=== PATIENT | male | born 1965 | race Caucasian/White ===

== ENCOUNTER 2020-08-12 08:25 | Inpatient (IN) | payer OTHER ==
[~2020-08-12] VITALS: Ht 175.2 cm; Wt 1111.4 kg
[2020-08-12 09:11] LABS: HEMATOCRIT 35.7 % (42.0-52.0); MEAN CELL VOLUME 86.4 fl (80.0-94.0); MEAN CORPUSCULAR HGB 28.1 pg (27.0-31.0); MEAN CORPUSCULAR HGB CONC 32.5 g/dl (33.0-37.0); MEAN PLATELET VOLUME 10.3 fl (9.6-12.3); PLATELET COUNT AUTOMATED 90 10*3/uL (130-400); RED BLOOD COUNT 4.13 10*6/uL (4.50-5.90); RED CELL DISTRI WIDTH 13.5 % (0-14.5)
[2020-08-12 09:23] LABS: ACT PARTIAL THROMBO TIME 33.6 SECONDS (20.0-32.1); INTERNATIONAL NORM RATIO 1.1 (2.0-3.5)
[2020-08-12 09:25] LABS: ALBUMIN 3.1 gm/dl (3.1-4.5); ALKALINE PHOSPHATASE 150 U/L (45-117); BUN 5 mg/dl (7-24); CHLORIDE 110 mmol/L (98-107); CREATININE 0.77 mg/dL (0.70-1.30); LIPASE 75 U/L (73-393); POTASSIUM 2.9 mmol/L (3.5-5.1); SGOT/AST 47 IU/L (3-35); SGPT/ALT 29 U/L (12-78); SODIUM 143 mmol/L (136-145); TOTAL PROTEIN 7.1 gm/dL (6.4-8.2); TROPONIN I < 0.015 ng/ml (<0.045)
[2020-08-12 09:32] LABS: OVALOCYTES MODERATE; PLATELET SUFFICIENCY LOW (NORMAL); ROULEAUX MODERATE; TOTAL CELLS COUNTED 100 #CELLS
[2020-08-12] MEDS ORDERED: ASPIRIN ADULT L81 M1 PO (10:41)
[2020-08-12] MEDS ORDERED: GLUCOPHAGE500 M1 PO (10:42)
[2020-08-12] MEDS ORDERED: ATORVASTATIN CA20 M1 PO (10:43)
--- NOTE | 2020-08-12 10:45 | NUR ---
patient alert, comfortable at this time. awaiting lab results.
--- NOTE | 2020-08-12 13:57 | NUR ---
ATTEMPT TO CALL REPORT TO FLOOR. RN UNAVAILABLE AT THIS TIME.
--- NOTE | 2020-08-12 14:41 | NUR ---
DR. PINO NOTIFIED OF CONSULT.
--- NOTE | 2020-08-12 14:46 | NUR ---
DR. CASTELLON'S OFFICE NOTIFIED OF CONSULT.
--- NOTE | 2020-08-12 15:05 | NUR ---
REPORT TO JANN RUVALCABA
[2020-08-12 15:20] VITALS: BP 146/66
[2020-08-12 15:46] LABS: ABG BASE EXCESS 2.1 mmol/L (-2.0-2.0); ARTERIAL BLOOD GAS PH 7.42 (7.35-7.45)
[2020-08-12 16:00] VITALS: BP 146/66
--- NOTE | 2020-08-12 18:29 | NUR ---
1430 ADMITTED TO .# 425 VIA CART FROM ER WITH PNUEMONIA, R/O COID-19. ISOLATION STARTED. ALERT, ORIENTED X3 . COHERENT WITH O2 PER N/C IN PLACE. VITALS STABLE. DENIED DISCOMFORT AT THIS TIME. BILATERAL CRACKLES, MORE PRONOUNCED TO THE LEFT UPPER AND LOWER LOBES. NO DYSPMEA NOTED. RESTING COMFORTABLY. LEFT AC IV .9NS 1L INFUSING WITH NO S/S INFILTATION NOTED.ABDOMEN OBESE WITH ACTIVE B/S X4. DENIES DISCOMFORT. NO SYSTEMIC EDEMA NOTED. POSITIVE STRONG PERPHERIAL PULSES.
[2020-08-12 20:00] VITALS: BP 129/67
[2020-08-13] VITALS (7 sets, daily range): BP systolic 122–157; BP diastolic 50–82
--- NOTE | 2020-08-13 01:10 | NUR ---
PLACED PATIENT ON BIPAP 16/10,50%O2 DUE TO LOW OXYGEN SATURATION 86-88% AND INCREASED WORK OF BREATHING. PATIENT APPEARS MORE COMFORTABLE AND STATED HE CAN BREATHE MUCH BETTER.
[2020-08-13 01:29] LABS: ABG BASE EXCESS 2.8 mmol/L (-2.0-2.0); ARTERIAL BLOOD GAS PH 7.42 (7.35-7.45)
--- NOTE | 2020-08-13 01:38 | NUR ---
0100 Pts. sat's 85%-86% Respiratory called pt was placed on Bi-pap sat's 97% ABG'S drawn by Respiratory Therapist. Temp. 100.0 Tylenol 2 tabs given po @ 0105. Pt. resting comfortably, stated feeling much better. Will continue to monitor.
--- NOTE | 2020-08-13 02:35 | NUR ---
INCREASED O2 VIA BIPAP TO 65% TO MAINTAIN SPO2 <92%. WILL CONTINUE TO MONITOR
--- NOTE | 2020-08-13 03:29 | NUR ---
0327 Pt tranfered to ICU pt needed higher level of care due to respiratory status and fever of 100.0. RT. felt pt. needed higher level of care. Report given to nurse @ 0325. T. 100.0 P.80 R.18 sat's 97%.
--- NOTE | 2020-08-13 03:42 | NUR ---
0330:Pt received from 425-1, pt is AAOx3. Pt is on BiPAP at 65%, saturating 95%. Pt VSS, in no signs of distress. Pt noted with left forearm PIV, site is clean and intact. Skin assessment complete, skin is intact. Call roberson within reach, safety measures in place.
[2020-08-13 06:28] LABS: ALBUMIN 2.9 gm/dl (3.1-4.5); BUN 6 mg/dl (7-24); CHLORIDE 110 mmol/L (98-107); POTASSIUM 3.1 mmol/L (3.5-5.1); SODIUM 143 mmol/L (136-145)
[2020-08-13 06:35] LABS: MONO # 0.2 10*3/uL (0.1-1.0); NEUT # 1.4 10*3/uL (2.3-7.9)
[2020-08-13 06:36] LABS: HEMATOCRIT 35.6 % (42.0-52.0); LYMPH # 0.5 10*3/uL (1.3-4.4); MEAN CELL VOLUME 87.3 fl (80.0-94.0); MEAN CORPUSCULAR HGB 28.2 pg (27.0-31.0); MEAN CORPUSCULAR HGB CONC 32.3 g/dl (33.0-37.0); MEAN PLATELET VOLUME 10.3 fl (9.6-12.3); MONO % 7.4 % (3.0-9.0); NEUT % 66.7 % (47.0-73.0); PLATELET COUNT AUTOMATED 112 10*3/uL (130-400); RED BLOOD COUNT 4.08 10*6/uL (4.50-5.90); RED CELL DISTRI WIDTH 13.4 % (0-14.5); WHITE BLOOD COUNT 2.2 10*3/uL (4.8-10.8)
[2020-08-13 06:37] LABS: ALKALINE PHOSPHATASE 133 U/L (45-117); CHOLESTEROL 86 mg/dL (<200); CREATININE 0.69 mg/dL (0.70-1.30); HDL CHOLESTEROL 27 mg/dl (40-60); LDL CHOLESTEROL 40 mg/dL (9-159); SGOT/AST 45 IU/L (3-35); SGPT/ALT 27 U/L (12-78); TOTAL PROTEIN 6.8 gm/dL (6.4-8.2); TRIGLYCERIDES 93 mg/dl (<150); VLDL CHOLESTEROL 19 mg/dL (6-40)
--- NOTE | 2020-08-13 07:47 | NUR ---
PT TAKEN OFF BIPAP AND PLACED ON 15LHFNC
[2020-08-13 07:50] LABS: ABG BASE EXCESS 3.1 mmol/L (-2.0-2.0); ARTERIAL BLOOD GAS PH 7.43 (7.35-7.45)
--- NOTE | 2020-08-13 08:00 | NUR ---
RESTING IN BED. ENCOURAGED PRONING. PULSE OX 97% ON 15 LITERS HIGH FLOW NASAL CANNULA. LUNGS CLEAR BILATERALLY. NO EDEMA NOTED.
--- NOTE | 2020-08-13 09:30 | NUR ---
DR. PINO HERE TO SEE PATIENT
[2020-08-13 12:50] LABS: ABG BASE EXCESS 3.9 mmol/L (-2.0-2.0); ARTERIAL BLOOD GAS PH 7.49 (7.35-7.45)
[2020-08-13 17:16] LABS: ABG BASE EXCESS 3.5 mmol/L (-2.0-2.0); ARTERIAL BLOOD GAS PH 7.457 (7.35-7.45)
--- NOTE | 2020-08-13 20:14 | NUR ---
ABG'S WERE DRAWN AND SENT. PULSE OX ON BIPAP 96%. TAKEN OFF FOR MEDICATIONS, ICE WATER, MEDS, AND TALKING ON HER CELL PHONE. PLACED ON 15L HIGH FLOW NASAL CANNULA WITH PULSE OX 88-93%.
[2020-08-13 20:21] LABS: ABG BASE EXCESS 2.7 mmol/L (-2.0-2.0); ARTERIAL BLOOD GAS PH 7.486 (7.35-7.45)
--- NOTE | 2020-08-13 20:34 | NUR ---
ABG'S WERE DRAWN AND SENT BY DANYA FROM RESPIRATORY DEPT WHILE PT WAS ON BIPAP. HE NOTIFIED DR PINO OF RESULTS. PT WANTING A BREAK AND TO TALK ON TELEPHONE, SO HE WAS THEN PLACED ON 12L HF NASAL AND O2 SATS WERE LOW TO MID 90'S.
--- NOTE | 2020-08-13 21:03 | NUR ---
CHART CHECK COMPLETE.
--- NOTE | 2020-08-13 21:35 | NUR ---
PT EATING PM SNACK OF CRACKERS PER HIS REQUEST. PLEASANT, ALERT, APPROPRIATE.
--- NOTE | 2020-08-13 22:20 | NUR ---
BACK ON BIPAP.
[2020-08-14] VITALS: BP 136/70
--- NOTE | 2020-08-14 00:12 | NUR ---
PT SELF PRONING.
[2020-08-14 04:00] VITALS: BP 146/77
[2020-08-14 06:21] LABS: HEMATOCRIT 37.3 % (42.0-52.0); MEAN CELL VOLUME 85.7 fl (80.0-94.0); MEAN CORPUSCULAR HGB 27.6 pg (27.0-31.0); MEAN CORPUSCULAR HGB CONC 32.2 g/dl (33.0-37.0); MEAN PLATELET VOLUME 9.9 fl (9.6-12.3); PLATELET COUNT AUTOMATED 144 10*3/uL (130-400); RED BLOOD COUNT 4.35 10*6/uL (4.50-5.90); RED CELL DISTRI WIDTH 12.9 % (0-14.5)
[2020-08-14 06:27] LABS: WHITE BLOOD COUNT 1.4 10*3/uL (4.8-10.8)
[2020-08-14 06:38] LABS: ALBUMIN 2.9 gm/dl (3.1-4.5); ALKALINE PHOSPHATASE 137 U/L (45-117); BUN 9 mg/dl (7-24); CHLORIDE 110 mmol/L (98-107); POTASSIUM 4.1 mmol/L (3.5-5.1); SGOT/AST 39 IU/L (3-35); SGPT/ALT 28 U/L (12-78); SODIUM 142 mmol/L (136-145); TOTAL PROTEIN 7.1 gm/dL (6.4-8.2)
[2020-08-14 07:34] LABS: PLATELET SUFFICIENCY NORMAL (NORMAL); TOTAL CELLS COUNTED 100 #CELLS
[2020-08-14 08:00] VITALS: BP 150/86
--- NOTE | 2020-08-14 08:00 | NUR ---
PT IS AAOX3. VSS. PT REMAINS ON BIPAP. FIO2 55% POX 96%.. LUNG QUACH DIM. PT HAS HAD AN INFREQUENT COUGH. ABD. SOFT WITH ACTIVE BOWEL SOUNDS. NO PERIPHERAL EDEMA NOTED. PT DENIE COMPLAINTS. NO ACUTE DISTRESS NOTED.
[2020-08-14 08:41] LABS: ABG BASE EXCESS 2.2 mmol/L (-2.0-2.0); ARTERIAL BLOOD GAS PH 7.454 (7.35-7.45)
--- NOTE | 2020-08-14 09:00 | NUR ---
[employer] Observer Helper in to talk to patient. Patient states lives at home with friend. There are no steps in the home. Physician: out of state Pharmacy: out of state Home health services: no Patient's level of ADLs: INDEPENDENT Patient has working utilities: all working DME: none Follow-up physician's appointment after d/c: will be made by hospitalist nurse director with doctor of patient's choice Does patient want to access PORTAL?: no Discharge plan he lives at home with friend, is independent in adls and ambulation, works, drives, discharge plan undecided at this time, case management will follow. LUIS ANGEL CHAPARRO
--- NOTE | 2020-08-14 10:30 | NUR ---
DR PINO IN TO SEE PT. NEW ORDERS RECEIVED.
--- NOTE | 2020-08-14 11:00 | NUR ---
RIGHT RADIAL ARTERIAL LINE PLACED BY PHIL SIFUENTES CRNA, AFTER VERBAL CONSENT RECEIVED FROM PT. PT TOLERATED PROCEDURE WELL.
[2020-08-14 12:00] VITALS: BP 143/74
[2020-08-14 16:00] VITALS: BP 165/80
--- NOTE | 2020-08-14 16:09 | NUR ---
PT RESTING. NO ACUTE DISTRESS NOTED.
[2020-08-14 20:00] VITALS: BP 150/71
--- NOTE | 2020-08-14 20:00 | NUR ---
PT RESTING IN BED TALKING ON PHONE, A&OXE, PLEASANT AND COOPERATIVE WITH STAFF. RESP NONLABORED. NO ACUTE DISTRESS NOTED. NO COMPLAINTS VOICED. RIGHT ART LINE AND LEFT HEPLOCK PATENT.
[2020-08-15] VITALS: BP 130/62
[2020-08-15 04:00] VITALS: BP 131/59
--- NOTE | 2020-08-15 04:55 | NUR ---
DR LING NOTIFIED OF HR GOING INTO 30'S. STATES WILL PASS ON TO DAYLIGHT SHIFT.
[2020-08-15 06:16] LABS: HEMATOCRIT 36.5 % (42.0-52.0); LYMPH # 0.5 10*3/uL (1.3-4.4); MEAN CELL VOLUME 85.3 fl (80.0-94.0); MEAN CORPUSCULAR HGB 28.3 pg (27.0-31.0); MEAN CORPUSCULAR HGB CONC 33.2 g/dl (33.0-37.0); MEAN PLATELET VOLUME 10.6 fl (9.6-12.3); MONO # 0.2 10*3/uL (0.1-1.0); NEUT # 2.6 10*3/uL (2.3-7.9); NEUT % 78.7 % (47.0-73.0); PLATELET COUNT AUTOMATED 165 10*3/uL (130-400); RED BLOOD COUNT 4.28 10*6/uL (4.50-5.90); RED CELL DISTRI WIDTH 13.2 % (0-14.5); WHITE BLOOD COUNT 3.3 10*3/uL (4.8-10.8)
[2020-08-15 06:42] LABS: BUN 17 mg/dl (7-24); CHLORIDE 110 mmol/L (98-107); CREATININE 0.69 mg/dL (0.70-1.30); SGOT/AST 32 IU/L (3-35); SGPT/ALT 28 U/L (12-78); SODIUM 139 mmol/L (136-145)
[2020-08-15 06:45] LABS: ALKALINE PHOSPHATASE 127 U/L (45-117); LDH 313 U/L (87-241)
[2020-08-15 07:29] LABS: ARTERIAL BLOOD GAS PH 7.441 (7.35-7.45)
[2020-08-15 08:00] VITALS: BP 129/60
--- NOTE | 2020-08-15 10:00 | NUR ---
PLACED UP INTO CHAIR WITH HELP. TOLERATED FAIR. ART LINE INTACT TO RIGHT RADIAL. SINUS CONCETTA ON HEART MONITOR. HEART RATE 40-50'S
[2020-08-15 12:00] VITALS: BP 141/60
[2020-08-15 16:00] VITALS: BP 138/57
[2020-08-15 20:00] VITALS: BP 122/53
[2020-08-16] VITALS: BP 129/62
[2020-08-16 04:00] VITALS: BP 126/50
[2020-08-16 06:05] LABS: LYMPH # 0.6 10*3/uL (1.3-4.4); LYMPH % 14.5 % (27.0-41.0); MEAN CELL VOLUME 84.7 fl (80.0-94.0); MEAN CORPUSCULAR HGB CONC 33.1 g/dl (33.0-37.0); MEAN PLATELET VOLUME 10.6 fl (9.6-12.3); MONO # 0.2 10*3/uL (0.1-1.0); MONO % 6.2 % (3.0-9.0); NEUT % 78.5 % (47.0-73.0); PLATELET COUNT AUTOMATED 180 10*3/uL (130-400); RED BLOOD COUNT 4.25 10*6/uL (4.50-5.90); RED CELL DISTRI WIDTH 13.1 % (0-14.5); WHITE BLOOD COUNT 3.9 10*3/uL (4.8-10.8)
[2020-08-16 06:25] LABS: ALBUMIN 2.9 gm/dl (3.1-4.5); BUN 18 mg/dl (7-24); CHLORIDE 108 mmol/L (98-107); CREATININE 0.63 mg/dL (0.70-1.30); POTASSIUM 3.6 mmol/L (3.5-5.1); SGOT/AST 40 IU/L (3-35); SODIUM 140 mmol/L (136-145); TOTAL PROTEIN 6.3 gm/dL (6.4-8.2)
[2020-08-16 06:26] LABS: CPK 61 U/L (39-308); SGPT/ALT 58 U/L (12-78)
[2020-08-16 06:27] LABS: ALKALINE PHOSPHATASE 114 U/L (45-117); LDH 234 U/L (87-241)
[2020-08-16 08:00] VITALS: BP 117/53
[2020-08-16 08:28] LABS: ABG BASE EXCESS 0.4 mmol/L (-2.0-2.0); ARTERIAL BLOOD GAS PH 7.466 (7.35-7.45)
--- NOTE | 2020-08-16 08:30 | NUR ---
AM ABG DRAWN WHILE PT ON BIPAP. POST ABG, PT TAKEN OFF BIPAP PLACED ON 8 L HFNC. RESPS REGULAR AND UNLABORED.
--- NOTE | 2020-08-16 10:28 | NUR ---
CONDITION DISCUSSED WITH DR PINO. ORDERS RECEIVED.
--- NOTE | 2020-08-16 12:00 | NUR ---
DR PINO VISITS.
[2020-08-16 12:12] LABS: ABG BASE EXCESS 2.5 mmol/L (-2.0-2.0); ARTERIAL BLOOD GAS PH 7.482 (7.35-7.45)
--- NOTE | 2020-08-16 12:21 | NUR ---
FIO2 ON BIPAPDECREASED TO 40% PER DR PINO. ABG DRAWN ON 8 L HFNC.
[2020-08-16 12:29] VITALS: BP 163/73
--- NOTE | 2020-08-16 12:31 | NUR ---
PT OFFERED TO ASSIST WITH BATH BUT HE DECLINES AT THIS TIME.
--- NOTE | 2020-08-16 13:37 | NUR ---
ART LINE WAS REMOVED. PRESSURE APPLIED FOR 15 MINUTES AND DRESSING SECURE. SHIFT DIRECTOR NOTIFIED OF TELE STATUS.
--- NOTE | 2020-08-16 15:10 | NUR ---
PT BACK ON BIPAP AND SELF PRONING.
[2020-08-16 16:00] VITALS: BP 125/62
[2020-08-16 20:00] VITALS: BP 144/73
--- NOTE | 2020-08-16 22:00 | NUR ---
PT TRANSFERRED TO FLOOR. REPORT RECEIVED. PT LYING INBED WATCHING TV. NO COMPLAINTS
[2020-08-17] VITALS: BP 128/52
--- NOTE | 2020-08-17 02:00 | NUR ---
PT ASLEEP AT THIS TIME. BIPAP IN PLACE.
--- NOTE | 2020-08-17 02:35 | NUR ---
24 HR chart check completed.
[2020-08-17 06:28] LABS: HEMATOCRIT 37.5 % (42.0-52.0); LYMPH # 0.6 10*3/uL (1.3-4.4); LYMPH % 13.3 % (27.0-41.0); MEAN CELL VOLUME 85.2 fl (80.0-94.0); MEAN CORPUSCULAR HGB 28.2 pg (27.0-31.0); MEAN CORPUSCULAR HGB CONC 33.1 g/dl (33.0-37.0); MEAN PLATELET VOLUME 10.2 fl (9.6-12.3); MONO # 0.2 10*3/uL (0.1-1.0); MONO % 5.3 % (3.0-9.0); NEUT # 3.6 10*3/uL (2.3-7.9); NEUT % 80.5 % (47.0-73.0); PLATELET COUNT AUTOMATED 174 10*3/uL (130-400); RED CELL DISTRI WIDTH 13.1 % (0-14.5); WHITE BLOOD COUNT 4.5 10*3/uL (4.8-10.8)
[2020-08-17 07:03] LABS: ALKALINE PHOSPHATASE 142 U/L (45-117); BUN 19 mg/dl (7-24); CHLORIDE 109 mmol/L (98-107); CREATININE 0.71 mg/dL (0.70-1.30); LDH 238 U/L (87-241); SGOT/AST 146 IU/L (3-35); SGPT/ALT 321 U/L (12-78); SODIUM 141 mmol/L (136-145); TOTAL PROTEIN 6.7 gm/dL (6.4-8.2)
[2020-08-17 07:04] LABS: CPK 44 U/L (39-308)
[2020-08-17 08:00] VITALS: BP 142/65
[2020-08-17 12:00] VITALS: BP 129/69
[2020-08-17 20:00] VITALS: BP 146/66
[2020-08-18] VITALS: BP 109/58
[2020-08-18 06:14] LABS: LYMPH # 0.7 10*3/uL (1.3-4.4); LYMPH % 12.8 % (27.0-41.0); MEAN CELL VOLUME 84.3 fl (80.0-94.0); MEAN CORPUSCULAR HGB CONC 33.2 g/dl (33.0-37.0); MEAN PLATELET VOLUME 10.1 fl (9.6-12.3); MONO # 0.3 10*3/uL (0.1-1.0); MONO % 5.5 % (3.0-9.0); NEUT # 4.4 10*3/uL (2.3-7.9); PLATELET COUNT AUTOMATED 178 10*3/uL (130-400); RED BLOOD COUNT 4.39 10*6/uL (4.50-5.90); WHITE BLOOD COUNT 5.5 10*3/uL (4.8-10.8)
[2020-08-18 06:31] LABS: ALBUMIN 2.9 gm/dl (3.1-4.5); BUN 16 mg/dl (7-24); CHLORIDE 109 mmol/L (98-107); CREATININE 0.67 mg/dL (0.70-1.30); SGOT/AST 56 IU/L (3-35); SODIUM 140 mmol/L (136-145)
[2020-08-18 06:35] LABS: ALKALINE PHOSPHATASE 127 U/L (45-117); CPK 36 U/L (39-308); LDH 184 U/L (87-241); SGPT/ALT 235 U/L (12-78); TOTAL PROTEIN 6.3 gm/dL (6.4-8.2)
[2020-08-18 08:00] VITALS: BP 135/56
[2020-08-18 12:00] VITALS: BP 118/65
[2020-08-18 16:00] VITALS: BP 153/61
[2020-08-18 20:00] VITALS: BP 151/67
--- NOTE | 2020-08-18 21:15 | NUR ---
RESTING IN BED. REPOSITIONS SELF IN BED. NO C/O AT THIS TIME. OXYGEN IN USE. NO SOB NOTED. BSG-183, SEE EMAR. CALL LIGHT IN REACH. SEE SHIFT ASSESSMENT.
[2020-08-19] VITALS: BP 144/78
--- NOTE | 2020-08-19 00:40 | NUR ---
PT RESTING IN BED. RESP-EASY AND REGULAR. BIPAP IN USE. CALL LIGHT IN REACH. SEE SHIFT ASSESSMENT.
--- NOTE | 2020-08-19 04:00 | NUR ---
SLEEPING IN BED. RESP-EASY AND REGULAR. BIPAP IN USE.CALL LIGHT IN REACH.
--- NOTE | 2020-08-19 05:30 | NUR ---
PT RESTING IN BED. RESP-EASY AND REGULAR. OXYGEN IN USE. CALL LIGHT IN REACH.
--- NOTE | 2020-08-19 06:40 | NUR ---
BSG-152, NO COVERAGE GIVEN.
[2020-08-19 07:42] LABS: HEMATOCRIT 36.6 % (42.0-52.0); MEAN CELL VOLUME 83.9 fl (80.0-94.0); MEAN CORPUSCULAR HGB 27.8 pg (27.0-31.0); MEAN CORPUSCULAR HGB CONC 33.1 g/dl (33.0-37.0); MEAN PLATELET VOLUME 10.1 fl (9.6-12.3); PLATELET COUNT AUTOMATED 183 10*3/uL (130-400); RED BLOOD COUNT 4.36 10*6/uL (4.50-5.90); RED CELL DISTRI WIDTH 13.2 % (0-14.5); WHITE BLOOD COUNT 5.2 10*3/uL (4.8-10.8)
[2020-08-19 08:00] VITALS: BP 146/71
[2020-08-19 08:13] LABS: ALBUMIN 2.8 gm/dl (3.1-4.5); ALKALINE PHOSPHATASE 124 U/L (45-117); BUN 22 mg/dl (7-24); CHLORIDE 108 mmol/L (98-107); CREATININE 0.75 mg/dL (0.70-1.30); LDH 181 U/L (87-241); POTASSIUM 3.8 mmol/L (3.5-5.1); SGOT/AST 140 IU/L (3-35); SGPT/ALT 496 U/L (12-78); SODIUM 139 mmol/L (136-145); TOTAL PROTEIN 6.1 gm/dL (6.4-8.2)
--- NOTE | 2020-08-19 08:34 | NUR ---
PT IN BED ON BIPAP, REQUESTED IT TO BE REMOVED. PT AMBULATED TO BATHROOM, WASHED UP AND RETURNED TO BED. PULSE OX 96% ON RA. PT AMBUALTED AROUND ROOM STATING HE "FEELS GREAT" 3L HIGH [place] NC APPLIED. RESP EASY AND NONLABORED. NO C/O, WILL MONITOR.
[2020-08-19 08:43] LABS: ATYPICAL LYMPHS 1 % (0-0); OVALOCYTES MODERATE; PLATELET SUFFICIENCY NORMAL (NORMAL); TOTAL CELLS COUNTED 100 #CELLS
--- NOTE | 2020-08-19 09:00 | NUR ---
case management talks with patient, he will return home when discharged and denies any home needs
[2020-08-19 12:00] VITALS: BP 128/68
--- NOTE | 2020-08-19 12:45 | NUR ---
HOME O2 ASSESSMENT: PRE BP: 139/64, HR 65, RR 18, PULSE OX 94% ON ROOM AIR AT REST. AMBULATED PATIENT IN ROOM, PULSE OX 94%-97% ON ROOM AIR WHILE AMBULATING. NO DISTRESS NOTED. POST BP: 141/65, HR 63, RR 18, PULSE OX 98% ON ROOM AIR AT REST. RN NOTIFIED.
[2020-08-19] MEDS ORDERED: DECADRON6 M1 PO (14:23)
--- NOTE | 2020-08-19 15:35 | NUR ---
Discharge instructions reviewed with patient/family. Patient receptive and verbalizes understanding. Follow-up care arranged. Written instructions given to patient/family. ERIKA MELTON
== END 2020-08-19 15:35 | disposition home or self-care (01) | DRG 177 ==
LOC: ED 08:25 → EDHOLD 12:44 → ICCU 12:44 → 4E 12:44 → ICCU 08-13 03:15 → 4E 08-16 21:00
PROVIDERS: Emergency Medicine; Family Medicine; Internal Medicine; Internal Medicine Critical Care Medicine; Student in an Organized Health Care Education/Training Program; ADMIT Internal Medicine; ATTEND Internal Medicine
PROC: 5A09457 Assistance with Respiratory Ventilation, 24-96 Consecutive Hours, Continuous Positive Airway Pressure (ICD-10-PCS; 2020-08-13)
PROC: XW033E5 Introduction of Remdesivir Anti-infective into Peripheral Vein, Percutaneous Approach, New Technology Group 5 (ICD-10-PCS; principal; 2020-08-14)
PROC: 5A09357 Assistance with Respiratory Ventilation, Less than 24 Consecutive Hours, Continuous Positive Airway Pressure (ICD-10-PCS; 2020-08-16)
PROC: 5A09357 Assistance with Respiratory Ventilation, Less than 24 Consecutive Hours, Continuous Positive Airway Pressure (ICD-10-PCS; 2020-08-18)
PROC: 5A09357 Assistance with Respiratory Ventilation, Less than 24 Consecutive Hours, Continuous Positive Airway Pressure (ICD-10-PCS; 2020-08-19)
DX: U07.1 COVID-19 (principal); J96.01 Acute respiratory failure with hypoxia; J12.89 Other viral pneumonia; D61.818 Other pancytopenia; E44.0 Moderate protein-calorie malnutrition; D68.59 Other primary thrombophilia; E87.6 Hypokalemia; E87.8 Other disorders of electrolyte and fluid balance, not elsewhere classified; E11.65 Type 2 diabetes mellitus with hyperglycemia; R74.01 Elevation of levels of liver transaminase levels; E66.01 Morbid (severe) obesity due to excess calories; E78.5 Hyperlipidemia, unspecified; I10 Essential (primary) hypertension; G47.33 Obstructive sleep apnea (adult) (pediatric); Z88.8 Allergy status to other drugs, medicaments and biological substances; Z90.49 Acquired absence of other specified parts of digestive tract; Z87.891 Personal history of nicotine dependence; Z79.82 Long term (current) use of aspirin; Z79.84 Long term (current) use of oral hypoglycemic drugs